=== PATIENT | female | born 1930 | race Two or more races ===

== ENCOUNTER 2020-10-06 14:24 | Inpatient (IN) | payer OTHER ==
[~2020-10-06] VITALS: Ht 160 cm; Wt 44.5 kg
[2020-10-06] MEDS ORDERED: ECOTRIN81 MG (14:36)
[2020-10-09] MEDS ORDERED: ELIQUIS2.5 MG PO (12:20)
[2020-10-09] MEDS ORDERED: INTEGRA F CAPS1 EACH PO (12:20)
[2020-10-09] MEDS ORDERED: ULTRACET PO (12:20)
== END 2020-10-09 17:54 | DRG 522 ==
LOC: ER 14:24 → O/R 10-07 14:08 → SURG 10-07 14:08 → SURH 10-07 17:50 → SURG 10-07 17:51
PROVIDERS: ADMIT Orthopaedic Surgery; ATTEND Orthopaedic Surgery
PROC: B24BZZZ Ultrasonography of Heart with Aorta (ICD-10-PCS; 2020-10-07)
PROC: 0SRS0JZ Replacement of Left Hip Joint, Femoral Surface with Synthetic Substitute, Open Approach (ICD-10-PCS; principal; 2020-10-07 15:00)
DX: S72.092A Other fracture of head and neck of left femur, initial encounter for closed fracture (principal); Z20.828 Contact with and (suspected) exposure to other viral communicable diseases; W18.39XA Other fall on same level, initial encounter; F41.8 Other specified anxiety disorders; M81.0 Age-related osteoporosis without current pathological fracture